=== PATIENT | female | born 1960 | race Caucasian/White ===

== ENCOUNTER 2019-08-12 08:16 | Emergency (ER) | payer MEDICAID ==
[~2019-08-12] VITALS: Ht 162.6 cm; Wt 58.1 kg
[2019-08-12 08:16] VITALS: BP_SYST 125
[2019-08-12] MEDS ORDERED: HYDR-500 PO (08:42)
[2019-08-12] MEDS ORDERED: IBUP-23 PO (08:42)
[2019-08-12] MEDS ORDERED: LISI-600 PO (08:42)
[2019-08-12] MEDS ORDERED: AMLO2.5T50 PO (08:42)
[2019-08-12] MEDS ORDERED: IBUPROFEN 800 MG TABLET PO ONE (09:00)
[2019-08-12] MEDS ORDERED: CLINDAMYCIN PHOSPHATE 300 MG/2 ML VIAL IM ONE (09:00)
[2019-08-12] MEDS ORDERED: CEPHALEXIN 500 MG CAPSULE PO ONE (09:00)
[2019-08-12 09:12] VITALS: BP_SYST 127
== END 2019-08-12 09:12 | disposition home or self-care (01) ==
LOC: SED 08:16
DX: K04.7 Periapical abscess without sinus (principal); R03.0 Elevated blood-pressure reading, without diagnosis of hypertension; Z88.2 Allergy status to sulfonamides; Z87.891 Personal history of nicotine dependence
CPT/HCPCS: 96372; 99283; J3490